=== PATIENT | male | born 1955 | race Caucasian/White ===

== ENCOUNTER 2021-08-06 01:19 | Outpatient (CLI) | payer OTHER, SELFPAY ==
[2021-08-06 12:12] LABS: Source Nasal/Nares
[2021-08-06 14:19] LABS: COVID-19 PCR Negative (Negative)
== END 2021-08-06 01:20 | disposition home or self-care (01) ==
PROVIDERS: PCP Internal Medicine; Visit Provider Ophthalmology
DX: Z20.822 Contact with and (suspected) exposure to COVID-19 (principal); Z01.818 Encounter for other preprocedural examination
CPT/HCPCS: 87635

== ENCOUNTER 2021-08-08 09:53 | Day surgery (SDC) | payer OTHER, SELFPAY ==
[2021-08-08 10:37] VITALS: BP 149/85; PULSE 64; RESP 18; TEMP 36.4; O2SAT 99
[2021-08-08] MEDS: Tropicam./Phenyleph. (1/2.5%) 5 ML BTL OS ×3 (10:45→10:57)
--- NOTE | 2021-08-08 11:06 | W.ANESPRE ---
General Info Date of Service Date Performed: 08/08/21 Height: 5 ft 6 in Weight: 140.7 kg Body Mass Index (BMI): 50.1 Surgical Procedure: Operation Date: 08/08/21 13:40 Proposed Procedure Side Surgeon p Cataract Extraction with IOL Implant w/Glaucoma Stent Left Harry Christine MD Meds Allergies and Home Medications Allergies Allergy/AdvReac Type Severity Reaction Status Date / Time rosuvastatin AdvReac Mild Leg cramps Verified 08/08/21 10:34 Home Medication Medication Instructions Recorded Cbd Gummies 2 unit PO HS 08/05/21 atorvastatin 40 mg tablet 40 mg PO DAILY 08/05/21 glimepiride 1 mg tablet 1 mg PO DIRECTED 08/05/21 ibuprofen 800 mg tablet 800 mg PO DAILY PRN 08/05/21 metformin 1,000 mg tablet 1,000 mg PO BID 08/05/21 tadalafil 20 mg tablet 20 mg PO DAILY PRN 08/05/21 Current Visit Medications: Current Medications Generic Name Dose Route Start Last Admin Trade Name Freq PRN Reason Stop Dose Admin Acetaminophen 1,000 mg 08/08/21 06:00 Acetaminophen 500 Mg Tab PO Q4H PRN PRN Miscellaneous Medication 0 ml 08/08/21 06:00 Prednisolone 1%, Moxifloxacin 0.5%, Nepafenac 0.1% 5ml Btl OS DIRECTED [facility] Miscellaneous Medication 0 ml 08/08/21 06:00 08/08/21 10:57 Tropicam./Phenyleph. (1/2.5%) 5 Ml Btl OS 1 drp DIRECTED SHAKIRA Administration Tetracaine HCl 0 ml 08/08/21 06:00 Tetracaine 0.5% 4 Ml Btl OS DIRECTED SHAKIRA PFSH Active Problems Active Problems: Problem Status Onset Code Nuclear sclerotic cataract of left eye H25.12 Medical History Medical History Arthritis Primary arthritis of right and left knee Cataract Cough Diabetes mellitus Type 2, Last A1C above 10, per note chronically uncontrolled. Erectile dysfunction Hyperlipemia Knee pain Morbidly obese greater than or equal BMI 50 NAFLD (nonalcoholic fatty liver disease) Osteoarthritis of carpometacarpal joint of thumb Sleep apnea Surgical History Surgical History History of appendectomy History of cataract surgery History of hernia repair Tobacco Smoking/Tobacco Use Status: Never Alcohol Alcohol Intake: never Substance Use Substance use: Never Substance use type: does not use Vital Signs and Lab Results Vital Signs Most Recent Vital Signs in EMR: Most Recent Vital Signs Temp Pulse Resp BP Pulse Ox 36.4 C L 64 18 149/85 H 99 08/08/21 10:37 08/08/21 10:37 08/08/21 10:37 08/08/21 10:37 08/08/21 10:37 Point of Care Results Point of Care Results: Finger Stick Blood Glucose 187 08/08/21 10:22 Lab Results Blood Type / Crossmatch: No Data to Display Complete Blood Count: No Data to Display Complete Metabolic Panel: No Data to Display Liver Function Panel: No Data to Display Coagulation Panel: No Data to Display Cardiac Panel: No Data to Display Arterial Blood Gas: No Data to Display Venous Blood Gas: No Data to Display Pancreas Panel: No Data to Display Thyroid Panel: No Data to Display Infectious Disease: Coronavirus (COVID-19)(PCR) Negative (Negative) 08/06/21 09:03 08/06/21 Coronavirus 2019 Source Nasal/Nares 08/06/21 09:03 08/06/21 Blood Cultures: No Data to Display Toxicology Panel: No Data to Display Anesthesia Assessment and Plan Anesthesia History Personal History: No History of Anesthesia Complications Family History: No Family History of Anesthesia Complications Exercise Tolerance Exercise Tolerance: Metabolic Equivalents<4 Pertinent Negatives Pertinent Negatives: No Major Cardiovascular Symptoms or Complaints, No Major Pulmonary Symptoms or Complaints and Other (Sleep apnea, uses CPAP religiously) Cardiac & Pulmonary Exam Cardiac Exam: Normal S1/S2 Heart Sounds and Heart Murmur Present Pulmonary Exam: Clear Bilateral Breath Sounds Implantable Cardiac Device Does patient have a Pacemaker or an ICD?: No Airway Exam Known Difficult Airway: Yes Previous Airway Comments:: Small airway was told by anesthesia provider at [facility] Mallampati Class: 2 Mouth Opening: Normal (> 3cm) Thyromental Distance: Greater than 3 cm Facial Hair: Full Luna Neck Range of Motion: Full ROM Neck Circumference: Thick Teeth Condition: Normal Dentition ASA Classification ASA Score: ASA 3 Emergency Case?: No NPO Status NPO Status: NPO Clears >2 hours, Solids >8 hours Anesthesia Plan Resuscitation Status: Full Code Anesthesia Technique: MAC Anesthesia Airway Planned: Natural Airway Monitors Used: Standard Monitors
[2021-08-08 11:38] VITALS: BMI 50.1
[2021-08-08] MEDS: Tetracaine 0.5% 4 ML BTL OS (11:58)
[2021-08-08] MEDS: Duovisc Viscoelastic System EACH 1 EACH (11:59)
[2021-08-08] MEDS: Balanced Salt Soln.-PLUS 500 ML BAG (11:59)
[2021-08-08] MEDS: Lidocaine 2% Jelly 6 ML SYR (12:00)
[2021-08-08] MEDS: Povidone-Iodine Ophth 30 ML BTL (12:01)
[2021-08-08 12:25] VITALS: BP 154/89; PULSE 69; RESP 16; TEMP 36.2; O2SAT 97
--- NOTE | 2021-08-08 12:27 | W.PM.DSUDISC ---
Discharge Plan Disposition Patient Disposition: HOME Condition: Good Discharge Details Attending Provider: Harry Christine Primary Care Provider: Helen Zelaya Home Meds and New Rx's Prescriptions: No Action atorvastatin 40 mg Tablet 40 mg PO DAILY 0RF ibuprofen 800 mg Tablet 800 mg PO DAILY PRN0RF glimepiride 1 mg Tablet 1 mg PO DIRECTED 0RF metformin 1,000 mg Tablet 1,000 mg PO BID 0RF tadalafil 20 mg Tablet 20 mg PO DAILY PRN0RF Rx Instructions: administer approximately 30min before sexual activity; do not use more than 1 dose per 24hrs Cbd Gummies 2 unit PO HS 0RF Discharge Instructions Stand Alone Forms: Post-op Topical Cataract, Trevor Braxton ([facility]) Discharge Orders Discharge Orders: Discharge Order (Routine); Ordered 08/08/21 Ordered By: Harry Christine DS: Diagnosis Discharge Diagnosis (1) Primary open angle glaucoma (POAG) of left eye, mild stage: Status: Chronic
--- NOTE | 2021-08-08 12:29 | ROE_ITS ---
Date of service: 08/08/21 Time of Service: 12:29 Operative Note Operative Note DATE OF PROCEDURE: 08/08/21 PRE-OP DIAGNOSIS: Nuclear cataract, left eye Primary open-angle glaucoma, left eye, mild stage PROCEDURE: 1. Cataract extraction using phacoemulsification with intraocular lens implant, left eye 2. Insertion of multiple anterior segment aqueous drainage devices (Glaukos iStent inject x 2) into trabecular meshwork, left eye SURGEON: Harry Christine ANESTHESIA TYPE: Local By Surgeon and MAC Refer to Anesthesia Record ESTIMATED BLOOD LOSS: 0 PATHOLOGY: none sent COMPLICATIONS: None Patient was transported to: same day Patient's condition: stable Implants: 1. [employer] / [employer] Tecnis ZCB00 intraocular lens 2. Glaukos iStent inject trabecular micro-bypass stent x 2 Indications: 1. Progressive decreased vision due to cataract, left eye 2. Primary open angle glaucoma, left eye Procedure Description: CATARACT SURGERY OPERATIVE REPORT PREOPERATIVE DIAGNOSIS: Nuclear cataract, left eye Primary open-angle glaucoma, left eye, mild stage POSTOPERATIVE DIAGNOSIS: Same OPERATION: 1. Cataract extraction using phacoemulsification with posterior chamber intraocular lens implant, left eye. 2. Insertion of multiple anterior segment aqueous drainage devices (Glaukos iStent inject x 2) into trabecular meshwork, left eye IOL: IOL Contract Officer/Model: [employer] Vision / DARA Tecnis ZCB00 IOL Power: + 18.5 diopters IOL Serial Number: [id number] Optic Diameter: 6.0mm Haptic/Overall Diameter: 13.0mm PHACO INFO: Miguel [employer] Vision System with OZil and Active [employer]uidics Cumulative Dispersed Energy (CDE): 15.81 seconds TRABECULAR MICRO-BYPASS STENT INFO: Glaukos iStent inject x 2 Reference Number: [id number] Serial Number: [id number] SURGEON: Harry Christine MD, PATRICK ANESTHESIA: Monitored Anesthesia Care (MAC), with local sub-tenon's anesthetic infiltration COMPLICATIONS: None SPECIMENS: None INDICATIONS FOR PROCEDURE: Patient is a 66-year-old gentleman with history of having previously undergone cataract surgery in his right eye several years ago. He has a history of glaucoma in both eyes, controlled on 2 medications. The option of cataract surgery was offered to the patient and he wished to proceed. In addition, the option of glaucoma stent implantation at the time of cataract surgery was offered and he wished to proceed with this as well. PROCEDURE: The correct surgical eye was identified and marked as the left eye and the pupil was dilated in the preoperative area using mydriatics and cycloplegics. The dilated pupil size was 7.5 mm mm. He elected to proceed without oral sedation.. The patient was brought to the operating room where cardiopulmonary monitoring was instituted and surgical time-out was performed, confirming the correct operative eye and IOL power. Topical anesthesia was administered and ophthalmic povidone-iodine 5% was instilled into the conjunctival fornices. Lidocaine gel was applied to the cornea and the mauricio-ocular area was prepped with Betadine 10% solution and draped in the usual sterile fashion for intraocular surgery, including an aperture drape. A Tegaderm transparent film dressing was cut in half and used to cover the lashes and lid margins. Care was taken to sequester the lashes and lid margins under the Tegaderm dressing. A lid speculum was placed between the lids of the operative eye and the Miguel [employer] Rev[employer] operating microscope was maneuvered into position. Juan Luis scissors were then used to make a conjunctival buttonhole approximately 6mm posterior to the limbus in the inferonasal quadrant. Blunt dissection was carried out to expose bare sclera, and a blunt-tipped sub-tenon?s anesthesia cannula was introduced and passed posteriorly along the globe where non- preserved plain lidocaine was injected into posterior sub-Tenon?s space. A sideport knife was used to make a paracentesis port superior/superiortemporally. Intraocular phenylephrine/lidocaine was injected into the anterior chamber. The anterior chamber was then filled with viscoelastic. A 2.4mm keratome knife was used to create a half-thickness groove at the limbus and then to construct a three-plane near-clear corneal tunnel extending 2.0mm into clear cornea in the temporal position. . A flap was raised on the anterior capsule and capsulorhexis forceps were used to complete a continuous curvilinear capsulorhexis of 5.0 mm. Balanced salt solution was then used to perform cortical cleaving hydrodissection and nuclear hydrodelineation until the lens could be freely rotated within the capsular bag. The lens nucleus was then disassembled and removed within the capsular bag and iris plane using phacoemulsification. Residual cortical material was removed using the 45-degree angled silicone I/A tip with 0.3mm port. The posterior capsule was carefully polished to remove as much residual lens epithelial cells as safely possible. The capsular bag was then inflated and the anterior chamber deepened with viscoelastic. The lens implant described above was inserted into the capsular bag using the DARA [place] Injector. A Kuglen hook was used to dial the IOL into position. The anterior chamber was then slightly over-filled with viscoelastic. The microsope and the patient's head were tilted into the ideal position for viewing of the anterior chamber angle. Viscoelastic was placed on the cornea followed by a surgical gonionlens, and the anterior chamber angle landmarks were identified. The Zyngeniaos iStent inject handpiece was introduced into the anterior chamber and the insertion sleeve was retracted once the injector was distal to the pupillary margin. The trocar was advanced through the central portion of the trabecular meshwork and into the back wall of Schlemm's canal in the superiornasal quadrant, with care taken to ensure the micro-insertion tube was perpendicular to the trabecular meshwork. The trabecular meshwork was lightly dimpled and the stent was injected without difficulty. The same procedure was then performed in the inferiornasal quradrant. Both stents were then examined and noted to be in good position within the trabecular meshwork. A moderate amount of hemorrhage was noted through the stent apertures. The microscope and the patients head were returned to the normal coaxial position. Viscoelatic was then removed from the anterior chamber using the I/A handpiece. The lens implant was noted to center nicely within the capsular bag. The incisions were stromally hydrated, and the anterior chamber was reformed using BSS. Then 0.5cc of moxifloxacin 1.0mg/ml were injected into the capsular bag and anterior chamber. The incisions were checked with a Weck spear and found to be secure. Several drops of ophthalmic povidone-iodine 5% were then applied to the eye followed by two drops of Imprimis combination predni solone/moxifloxacin/nepafenac solution. The drapes were removed and a clear plastic protective eye shield was placed over the eye. The patient was then returned to Same Day Surgery in stable condition.
--- NOTE | 2021-08-08 12:42 | W.ANESPOSTOP ---
Postoperative Evaluation Date, Time and Location Date Performed: 08/08/21 Time Performed: 12:25 Patient Location: Day Surgery Unit Vital Signs Most Recent Imported Vital Signs: Most Recent Vital Signs Temp Pulse Resp BP Pulse Ox 36.2 C L 69 16 154/89 H 97 08/08/21 12:25 08/08/21 12:25 08/08/21 12:25 08/08/21 12:25 08/08/21 12:25 Pain Score Most Recent Pain Score: Most Recent Pain Score Pain Level 0 08/08/21 12:25 Assessment Mental Status: Awake (Alert & Oriented to Patient Baseline) Airway and Respiratory Function: Patent airway with normal (patient baseline) respiratory exam Cardiovascular Function: Hemodynamically Stable Hydration Status: Adequately Hydrated Nausea & Vomiting: No Nausea or Vomiting Pain: Pt. Denies Any Pain Peripheral Nerve Block: Patient did not receive a nerve block
== END 2021-08-08 12:36 | disposition home or self-care (01) ==
PROVIDERS: PCP Family Medicine; Visit Provider Ophthalmology
PROC: (CPT 66991; principal; 2021-08-08 13:30)
DX: H40.1121 Primary open-angle glaucoma, left eye, mild stage (principal); H25.812 Combined forms of age-related cataract, left eye
CPT/HCPCS: 66991; V2632; C1783